=== PATIENT | female | born 1975 | race Caucasian/White ===

== ENCOUNTER 2021-02-01 14:18 | Outpatient (CLI) | payer OTHER, SELFPAY ==
--- NOTE | ~2021-02-01 | US_ITS ---
EXAMINATION: US pelvic complete w TV EXAM DATE: 02/01/2021 15:11 INDICATION: R10.2 - Pelvic and perineal pain. TECHNIQUE: Pelvic transabdominal and transvaginal sonogram was performed. There are multiple graysca le and Doppler images available for interpretation. Comparison is made to prior examination from FINDINGS: Uterus measures 7.9 x 5.8 x 5.9 cm, is retroverted and morphologically normal. Endometria l stripe measures 7 mm, within normal limits. There is no free pelvic fluid. Right adnexa: The ovary measures 3.9 x 1.6 x 2.3 cm and is morphologically normal. Ovarian vascular f low confirmed. Left adnexa: The ovary measures 3.6 x 1.6 x 2.8 cm and is morphologically normal. Ovarian vascular fl ow confirmed. IMPRESSION: 1. Unremarkable pelvic ultrasound exam. Reviewed, dictated and finalized at location A.
--- NOTE | ~2021-02-01 | MM_ITS ---
EXAMINATION: MM screening stormy BI w sylvester HISTORY: Screening TECHNIQUE: Craniocaudal and mediolateral oblique 3-D tomosynthesis images were obtained and synthetic 2-D images were generated. CAD analysis was submitted and interpreted. COMPARISON: 02/15/2014 BREAST PARENCHYMAL COMPOSITION: There are scattered areas of fibroglandular density. FINDINGS: There is no evidence of suspicious mass, calcification, or architectural distortion to sugg est malignancy in either breast. There has been no suspicious interval change. IMPRESSION: 1. No mammographic evidence of malignancy. 2. Recommend routine screening mammography in one year. BI-RADS Category 1: Negative Reviewed, dictated and finalized at location A.
== END 2021-02-01 14:19 ==
PROVIDERS: Visit Provider Obstetrics & Gynecology
DX: R10.2 Pelvic and perineal pain (principal); Z12.31 Encounter for screening mammogram for malignant neoplasm of breast
CPT/HCPCS: 76830; 76856; 77063; 77067

== ENCOUNTER 2021-10-07 19:13 | Emergency (ER) | payer OTHER, SELFPAY ==
[2021-10-07 19:19] VITALS: BP 159/90; PULSE 94; RESP 20; TEMP 36.9; O2SAT 100
--- NOTE | 2021-10-07 19:26 | ED.GENADULT ---
HPI - General Adult General Chief complaint: Upper Respiratory Infection Stated complaint: issues with sinuses Time Seen by Provider: 10/07/21 19:26 Source: patient Mode of arrival: ambulatory Limitations: no limitations History of Present Illness HPI narrative: 26-year-old female patient presents to the [facility] with complaints of nasal congestion. Patient states she first started having some nasal congestion and sinus issues on September 28. She was prescribed amoxicillin and an oral steroid for 10 days. Patient states that she finished the course and was feeling better while on it however the day after that she stopped the medication symptoms return. 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 Patient states she has taken Sudafed, Benadryl and other gihy-ijs-opzvsrm medications including the Zaida pot and Flonase without much relief. Patient states she cannot breathe at all through her nose. Patient states that she did have a nosebleed today. Patient states she feels like something is in her right nostril and states that her left nostril has so swollen even toward the outside that is visible on the face and very tender to the touch. Related Data Home Medications Medication Instructions Recorded Confirmed [id number] See Rx Instructions .ROUTE .COMPLEX 10/07/21 10/07/21 clonazepam 0.5 mg PO QID 10/07/21 10/07/21 Allergies Allergy/AdvReac Type Severity Reaction Status Date / Time No Known Allergies Allergy Verified 10/07/21 19:31 Review of Systems Review of Systems: CONSTITUTIONAL: Denies fever, chills, or sweats. EYES: Denies visual changes, redness, or discharge. ENT: Denies rhinorrhea, positive severe nasal congestion, denies sore throat, or otalgia. CARDIOVASCULAR: Denies chest pain, palpitations, or edema. RESPIRATORY: Denies cough or dyspnea. GASTROINTESTINAL: Denies abdominal pain, nausea, vomiting, or diarrhea. GENITOURINARY: Denies dysuria or hematuria. SKIN: Denies rash or itching. MUSCULOSKELETAL: Denies back pain, joint pain, or myalgia. NEUROLOGIC: Denies headache, numbness, or weakness. PSYCHIATRIC: Denies anxiety or depression. [facility] Past Medical History Medical History (Updated 10/07/21 @ 19:52 by ERIN Bales) History of vaginal delivery x 3 Migraines Surgical History Surgical History (Updated 10/07/21 @ 19:52 by ERIN Bales) H/O sinus surgery Tumor removed History of endometrial ablation S/P ACL surgery [place] teeth removed Family History Family History Father Hypertension Family history of elevated blood lipids Family history of diabetes mellitus in first degree relative Family history of coronary artery disease Alzheimer disease Social History Social History Smoking status: Former smoker (Recommend smoking cessation.) Second hand tobacco smoke exposure: No Smoking end date: 08/05/10 Alcohol intake: never Substance use: never Comments At the time of my signature I agree with nursing past medical history, surgical, social, and family history. There is no relevant family history pertinent to the presenting complaint. Exam Narrative: GENERAL: Well-appearing, well-nourished, and in no acute distress. HEAD: Normocephalic, atraumatic. EYES: PERRLA and EOMI. ENT: Nares are completely swollen shut all the way to the opening of the left nare. There is a clot noted to the right nare, no active rhinorrhea or epistaxis. Mucous membranes appear dry to the right nare. There is swelling and tenderness noted to the left lateral side of the nose on the face area no warmth or erythema present. NECK: Supple. No lymphadenopathy CHEST: Clear to auscultation. No respiratory distress. HEART: Regular rate and rhythm. No murmur heard. Normal peripheral pulses. ABD
[2021-10-07 19:32] VITALS: BP 159/90; PULSE 94; RESP 20; TEMP 36.9; O2SAT 100
== END 2021-10-07 19:50 | disposition home or self-care (01) ==
PROVIDERS: Emergency Provider Nurse Practitioner Family; PCP Internal Medicine
DX: J00 Acute nasopharyngitis [common cold] (principal); J01.90 Acute sinusitis, unspecified; Z87.891 Personal history of nicotine dependence
CPT/HCPCS: 99213; G0463

== ENCOUNTER 2024-03-18 13:54 | Emergency (ER) | payer OTHER, SELFPAY ==
--- NOTE | ~2024-03-18 | XR_ITS ---
EXAMINATION: XR hand RT min 3V DATE: 03/18/2024 14:49 INDICATION: Right hand pain at the metacarpophalangeal joints. Fall. TECHNIQUE: 3 views of right hand were obtained. COMPARISON: None. FINDINGS: Bone alignment is normal. No fracture. There is mild osteoarthritis of first metacarpophala ngeal joint, second and third distal interphalangeal joints, and first interphalangeal joint. There i s a punctate calcification and dorsal aspect of second distal interphalangeal joint. IMPRESSION: 1. Mild polyarticular osteoarthritis. Reviewed, dictated and finalized at location A.
--- NOTE | ~2024-03-18 | XR_ITS ---
EXAMINATION: XR humerus RT DATE: 03/18/2024 14:50 INDICATION: Right upper pain. Fall. TECHNIQUE: 2 views of right humerus were obtained. COMPARISON: None. FINDINGS: Bone alignment is normal. No fracture. Glenohumeral joint is normal. There is mild acromioc lavicular joint osteoarthritis. No elbow joint effusion. IMPRESSION: 1. Mild acromioclavicular joint osteoarthritis. Reviewed, dictated and finalized at location A.
[2024-03-18 14:06] VITALS: BP 109/68; PULSE 77; RESP 16; TEMP 36.8; O2SAT 98
--- NOTE | 2024-03-18 14:28 | ED.GENADULT ---
HPI - General Adult General Chief complaint: Extremity Injury, Upper Stated complaint: Right shoulder/arm/hand injury Time Seen by Provider: 03/18/24 14:20 Source: patient, RN notes reviewed and old records reviewed Mode of arrival: ambulatory Limitations: no limitations History of Present Illness HPI narrative: 48 year female who presents to [facility] with complaints pain to her right upper arm with bruising and swelling mid humerus with palpable tenderness with pain to her right hand with swelling over 2nd and 3rd MCP,,some minimal tenderness to right knee after tripping over her dog last night. Patient reports that she hit the TV stand and the wall. Patient has not taken any OTC medication for her discomfort has applied ice. MD complaint: injury to right humerus and right hand Onset (ago): day(s) (last night) Severity scale (1-10): 7 Quality: aching Exacerbating factors: movement Treatments prior to arrival: cold therapy Related Data Home Medications Medication Instructions Recorded Confirmed butalbital 50 mg-acetaminophen 325 See Rx Instructions .Route .COMPLEX 10/07/21 10/19/21 mg-caffeine 40 mg-codeine 30 mg cap clonazepam 0.5 mg tablet 0.5 mg PO QID 10/07/21 10/19/21 Allergies Allergy/AdvReac Type Severity Reaction Status Date / Time No Known Allergies Allergy Verified 10/19/21 09:02 Review of Systems Review of Systems: CONSTITUTIONAL: Denies fever, chills, or sweats. EYES: Denies visual changes, redness, or discharge. ENT: Denies rhinorrhea, congestion, sore throat, or otalgia. CARDIOVASCULAR: Denies chest pain, palpitations, or edema. RESPIRATORY: Denies cough or dyspnea. GASTROINTESTINAL: Denies abdominal pain, nausea, vomiting, or diarrhea. GENITOURINARY: Denies dysuria or hematuria. SKIN: Denies rash or itching. MUSCULOSKELETAL: history of chronic back pain back pain,pain to right mid humerus with bruising pain right hand over 2nd and 3rd MCP, minimal tenderness right knee with no swelling PSYCHIATRIC: positive for anxiety or depression. , All systems reviewed & are unremarkable except as noted in HPI and below PMFSH Past Medical History Medical History (Updated 03/20/24 @ 10:40 by Patricia Mora NP) Anxiety History of vaginal delivery x 3 Migraines Surgical History Surgical History H/O sinus surgery Tumor removed History of endometrial ablation S/P ACL surgery [place] teeth removed Family History Family History Father Hypertension Family history of elevated blood lipids Family history of diabetes mellitus in first degree relative Family history of coronary artery disease Alzheimer disease Social History Social History Smoking status: Former smoker (Recommend smoking cessation.) Second hand tobacco smoke exposure: No Smoking end date: 08/05/10 Alcohol intake: never Substance use: never Living arrangements: with family Comments At time of signature, agree with nursing past medical, surgical, social and family history. There is no relevant family history pertinent to the presenting complaint Exam Narrative: GENERAL: Well-appearing, well-nourished, and in no acute distress. HEAD: Normocephalic, atraumatic. EYES: PERRLA and EOMI.% on room air ENT: Nares clear, no rhinorrhea or epistaxis. Mucous membranes moist. NECK: Supple.no lymphadenopathy CHEST: Clear to auscultation. No respiratory distress.no cough noted SAO2 98% on room air HEART: Regular rate and rhythm. No murmur heard. Normal peripheral pulses. ABDOMEN: Soft, nontender, nondistended, normal active bowel sounds. EXTREMITIES: Normal range of motion. No edema.Exception noted to right mid humerus pain bruising and some swelling can move upper arm on own power palpable tenderness, pain to right hand with some swelling over 2nd and 3rd
== END 2024-03-18 15:11 | disposition home or self-care (01) ==
PROVIDERS: Emergency Provider Registered Nurse; PCP Internal Medicine
DX: M79.621 Pain in right upper arm (principal); M79.641 Pain in right hand; Z87.891 Personal history of nicotine dependence; F41.9 Anxiety disorder, unspecified
CPT/HCPCS: 73060; 73130; 99214; G0463

== ENCOUNTER 2024-05-27 18:46 | Emergency (ER) | payer OTHER, SELFPAY ==
[2024-05-27 18:54] VITALS: BP 144/93; PULSE 81; RESP 18; TEMP 37.1; O2SAT 99
--- NOTE | 2024-05-27 19:25 | ED.URI ---
HPI - URI/Sore Throat General Chief Complaint: Upper Respiratory Infection Stated Complaint: Consistent sinus infections, loss of voice Time Seen by Provider: 05/27/24 19:13 Source: patient and RN notes reviewed Mode of arrival: ambulatory Limitations: no limitations History of Present Illness HPI Narrative: Patient presents today with a 1 month history of cough, postnasal drip, hoarse voice. Patient states she started a 10 day course of amoxicillin but this did not improve her symptoms ocean then she was prescribed some Bactrim which did help. Five days ago her symptoms returned. Since that time she has tried Benadryl, Mucinex, Tylenol and ibuprofen with minimal relief. Related Data Home Medications Medication Instructions Recorded Confirmed butalbital 50 mg-acetaminophen 325 See Rx Instructions .Route .COMPLEX 10/07/21 05/27/24 mg-caffeine 40 mg-codeine 30 mg cap clonazepam 0.5 mg tablet 0.5 mg PO QID 10/07/21 05/27/24 Allergies Allergy/AdvReac Type Severity Reaction Status Date / Time No Known Allergies Allergy Verified 05/27/24 19:05 Review of Systems Review of Systems: CONSTITUTIONAL: Denies body aches, fever, chills, or sweats. EYES: Denies visual changes, redness, or discharge. ENT: Denies rhinorrhea, congestion, sore throat, or otalgia.+ postnasal drip, hoarse voice CARDIOVASCULAR: Denies chest pain, palpitations, or edema. RESPIRATORY: Denies dyspnea.+ cough, wheezing GASTROINTESTINAL: Denies abdominal pain, nausea, vomiting, or diarrhea. GENITOURINARY: Denies dysuria or hematuria. SKIN: Denies rash, itching, or wounds. MUSCULOSKELETAL: Denies back pain, joint pain, or myalgia. NEUROLOGIC: Denies headache, numbness, tingling, or weakness. PSYCH: Denies depression or anxiety. [facility] Past Medical History Medical History Anxiety History of vaginal delivery x 3 Migraines Surgical History Surgical History H/O sinus surgery Tumor removed History of endometrial ablation S/P ACL surgery [place] teeth removed Family History Family History Father Hypertension Family history of elevated blood lipids Family history of diabetes mellitus in first degree relative Family history of coronary artery disease Alzheimer disease Social History Social History Smoking status: Former smoker (Recommend smoking cessation.) Second hand tobacco smoke exposure: No Smoking end date: 08/05/10 Alcohol intake: never Substance use: never Living arrangements: with family Comments At time of signature, I have reviewed and agree with nursing past medical, surgical, social and family history unless otherwise noted. Please see nursing chart for further information. There is no relevant family history pertinent to the presenting complaint Exam Narrative: GENERAL: Well-appearing, well-nourished, and in no acute distress. HEAD: Normocephalic, atraumatic. EYES: EOMI. No redness or drainage. Conjunctivae normal. ENT: Mucous membranes pink and moist. Nares clear. No rhinorrhea. TMs normal bilaterally. Throat normal. Uvula midline. Hoarse voice NECK: Normal AROM. Supple. No lymphadenopathy. CHEST: No respiratory distress. Clear to auscultation. HEART: Regular rate and rhythm. No murmur appreciated. EXTREMITIES: Normal range of motion. No edema. SKIN: Warm, dry, no rash. Capillary refill normal. Normal skin turgor. NEURO: No focal deficits. Alert and oriented x3. Gait steady. PSYCH: Normal affect. No signs of depression or anxiety. Course Course Level of Care: Express Care Visit Vital Signs Vital signs: Vital Signs Temperature 98.8 F 05/27/24 18:54 Pulse Rate 81 05/27/24 18:54 Respiratory Rate 18 05/27/24 18:54 Blood Pressure 144
== END 2024-05-27 19:35 | disposition home or self-care (01) ==
PROVIDERS: Emergency Provider Nurse Practitioner; PCP Internal Medicine
DX: J04.0 Acute laryngitis (principal); J40 Bronchitis, not specified as acute or chronic; Z87.891 Personal history of nicotine dependence; F41.9 Anxiety disorder, unspecified
CPT/HCPCS: 99213; G0463